=== PATIENT | male | born 1960 | race Caucasian/White ===

== ENCOUNTER → 2019-10-23 09:07 | Outpatient (CLI) | payer BC, SELFPAY ==
--- NOTE | ~2019-10-23 | XR_ITS ---
EXAMINATION: XR shoulder RT min 2V DATE: 10/23/2019 09:43 INDICATION: Right shoulder pain. TECHNIQUE: 4 views of right shoulder were obtained. COMPARISON: None. FINDINGS: Bone alignment is normal. No fracture. Joint spaces are well maintained. IMPRESSION: 1. Normal right shoulder. Reviewed, dictated and finalized at location A. [employer] IMPRESSION: 1. Normal right shoulder.
== END ==
PROVIDERS: PCP Internal Medicine; Visit Provider Internal Medicine
DX: M25.511 Pain in right shoulder (principal)
CPT/HCPCS: 73030

== ENCOUNTER 2019-12-02 17:47 | Emergency (ER) | payer BC, SELFPAY ==
--- NOTE | 2019-12-02 17:56 | ED.URI ---
HPI - URI/Sore Throat General Chief Complaint: Upper Respiratory Infection Stated Complaint: sneezing/fever/mucus/cough Time Seen by Provider: 12/02/19 18:23 Source: patient and RN notes reviewed Mode of arrival: ambulatory Limitations: no limitations History of Present Illness HPI Narrative: 59-year-old male presents with concern for 3-day history of cough, rhinorrhea, nasal congestion. Reports taking NyQuil with no relief. Denies fever, chills, body aches, sweats. MD elicited complaint: nasal congestion Related Data Allergies Allergy/AdvReac Type Severity Reaction Status Date / Time No Known Allergies Allergy Unknown Verified 12/02/19 18:02 Review of Systems Review of Systems: Narrative: CONSTITUTIONAL: Denies malaise, chills, sweats, or fever. EYES: Denies visual changes, redness, or discharge. ENT: Reports rhinorrhea, congestion. Denies sinus pain, otalgia and sore throat. CARDIOVASCULAR: Denies chest pain, palpitations, or edema. RESPIRATORY: Reports cough. Denies dyspnea. GASTROINTESTINAL: Denies abdominal pain, nausea, vomiting, diarrhea SKIN: Denies rash or itching. MUSCULOSKELETAL: Denies myalgia. NEUROLOGIC: Denies headache. All systems reviewed & are unremarkable except as noted in HPI and below PMFSH Past Medical History Medical History (Updated 12/02/19 @ 18:28 by Gila Arellano NP) Depression Hypercholesterolemia Hypertension IBS (irritable bowel syndrome) Musculoskeletal disorder Left hand tendon surgery 1999 Poor sleep hygiene Sleep apnea Sleep disorder, shift work Surgical History Surgical History H/O inguinal hernia repair Social History Social History Smoking status: Never smoker Second hand tobacco smoke exposure: No Alcohol intake: never Comments At time of signature, agree with nursing past medical, surgical, social and family history. There is no relevant family history pertinent to the presenting complaint Exam Narrative: Exam Narrative: GENERAL: Well-appearing, well-nourished, and in no acute distress. HEAD: Normocephalic EYES: PERRLA, conjunctivae clear ENT: Nares clear, turbinates edematous and erythematous, clear discharge. Mucous membranes moist. TM pearly loyd with dull light reflex bilaterally; no tragal tenderness. Oropharynx not erythematous without lesions. Tonsils not enlarged and without exudate, no drooling, no hoarseness, no trismus, uvula midline. NECK: Supple. No lymphadenopathy CHEST: Clear to auscultation, breath sounds equal. No wheezing, rhonchi, rales, or stridor. No respiratory distress, speaks in full sentences. HEART: Regular rate and rhythm. No murmur heard. SKIN: Warm, dry, no rash. NEURO: Alert and oriented x3. PSYCH: Normal mood and affect Course Course Emergency Course: Patient is aware of diagnosis, understands and agrees to treatment plan. Anticipatory guidance given. Patient agrees to follow-up as directed and is aware of reasons to seek care at the emergency department. Portions of this record may have been created with voice recognition software Vital Signs Vital signs: Vital Signs Temperature 98.7 F 12/02/19 17:57 Pulse Rate 87 12/02/19 17:57 Respiratory Rate 18 12/02/19 17:57 Blood Pressure 115/85 12/02/19 17:57 Pulse Oximetry 100 12/02/19 17:57 Temperature 98.7 F 12/02/19 17:57 Pulse Rate 87 12/02/19 17:57 Respiratory Rate 18 12/02/19 17:57 Blood Pressure 115/85 12/02/19 17:57 Pulse Oximetry 100 12/02/19 17:57 Reviewed. MDM - URI/Sore Throat MDM Narrative Medical decision making narrative: Differential diagnosis considered: Strep pharyngitis, allergic rhinitis, upper respiratory tract infection, sinusitis, rhinosinusitis, nasopharyngitis. viral pharyngitis, otitis media, otitis externa, pneumonia, bronchitis, viral cough syndrome, viral syndrome, and influenza. Exam findings show
[2019-12-02 17:57] VITALS: BP 115/85; PULSE 87; RESP 18; TEMP 37.1; O2SAT 100
== END 2019-12-02 18:35 | disposition home or self-care (01) ==
PROVIDERS: Emergency Provider Nurse Practitioner; PCP Internal Medicine
DX: J06.9 Acute upper respiratory infection, unspecified (principal); E78.00 Pure hypercholesterolemia, unspecified; I10 Essential (primary) hypertension; G47.30 Sleep apnea, unspecified; F32.9 Major depressive disorder, single episode, unspecified
CPT/HCPCS: 99213; G0463

== ENCOUNTER 2021-06-30 16:07 | Emergency (ER) | payer OTHER, SELFPAY ==
[2021-06-30 16:51] VITALS: BP 139/89; PULSE 83; RESP 14; TEMP 36.3; O2SAT 99
--- NOTE | 2021-06-30 19:04 | ED.ANIMALBIT ---
HPI - Animal Bite General Chief Complaint: Animal Bite Stated Complaint: Dog bite Time Seen by Provider: 06/30/21 18:20 Source: patient Mode of arrival: ambulatory Limitations: no limitations History of Present Illness HPI narrative: This is a 60 year old male that presents to the ER for dog bite sustained just prior to arrival. Reports he was in the parking lot and another person had a dog in their car. Reports the dog got out of the car and bit him on the bottom. Reports bruising and pain to the area with superficial lacerations. He is not up to date on tetanus. Unsure of dogs vaccination status, but he did get the equipment oiler's information. Denies fever. Related Data Home Medications Medication Instructions Recorded Confirmed lisinopril 20 mg tablet 20 mg PO DAILY tablet 06/24/21 06/24/21 Allergies Allergy/AdvReac Type Severity Reaction Status Date / Time No Known Allergies Allergy Unknown Verified 06/30/21 18:16 Review of Systems Review of Systems: CONSTITUTIONAL: Denies fever SKIN: Reports dog bite All systems reviewed & are unremarkable except as noted in HPI and below PMFSH Past Medical History Medical History (Updated 06/30/21 @ 19:12 by Glory Lim PA-C) Depression Hypercholesterolemia Hypertension IBS (irritable bowel syndrome) Musculoskeletal disorder Left hand tendon surgery 1999 Poor sleep hygiene Sleep apnea Sleep disorder, shift work Surgical History Surgical History H/O inguinal hernia repair Family History Family History Sibling Diabetes mellitus Mother Family history of malignant neoplasm of urinary bladder, Onset Age: 82 Other Carcinoma of colon Family history of cardiovascular disease Social History Social History Smoking status: Never smoker Second hand tobacco smoke exposure: No Alcohol intake: never Exam Narrative: GENERAL: Well-appearing, well-nourished, and in no acute distress. HEAD: Normocephalic, atraumatic. EYES: EOMI. EXTREMITIES: Normal range of motion. No edema. Left buttock with small area of bruising with superficial abrasions SKIN: Warm, dry, no rash. NEURO: No focal deficits. Alert and oriented x3. PSYCH: Normal mood and affect Course Vital Signs Vital signs: Vital Signs Temperature 97.4 F L 06/30/21 16:51 Pulse Rate 83 06/30/21 16:51 Respiratory Rate 14 06/30/21 16:51 Blood Pressure 139/89 06/30/21 16:51 Pulse Oximetry 99 06/30/21 16:51 Temperature 97.4 F L 06/30/21 16:51 Pulse Rate 83 06/30/21 16:51 Respiratory Rate 14 06/30/21 16:51 Blood Pressure 139/89 06/30/21 16:51 Pulse Oximetry 99 06/30/21 16:51 MDM - Animal Bite MDM Narrative Medical decision making narrative: Patient presents the emergency department for dog bite sustained just prior to arrival. Patient was updated on tetanus. Wound was cleansed and covered with a bandage. Patient will be started on Augmentin. Unsure of vaccination status of dog, but he does have the equipment oiler's information to obtain this. Patient was educated on wound care. He is to follow-up with primary care doctor. He was given warnings to return to the ER Critical Care Time Critical Care Time Critical Care Time: No Discharge Plan Discharge Clinical Impression: Dog bite Qualifiers: Encounter type: initial encounter Qualified Code(s): W54.0XXA - Bitten by dog, initial encounter Patient Disposition: Home, Self-Care Condition: Stable Instructions: Antibiotic Form, Animal Bite (ED) Additional Instructions: Return to the emergency department if you experience fever, redness or swelling of your wound, abnormal drainage from your wound, or any other symptoms that are concerning to you. Apply antibiotic ointment daily. Do not soak the wound. Clean with mild soap and water daily. Take oral an
[2021-06-30] MEDS: TETANUS,DIPHTHERIA,AC PERTUSSIS ADULT (0.5 ML) BOOSTRIX IM (19:11)
[2021-06-30] MEDS: AMOXICILLIN/CLAVULANATE K 875-125 MG TAB 1 TABLET PO (19:11)
[2021-06-30 19:25] VITALS: BP 137/95; PULSE 77; RESP 18; O2SAT 100
== END 2021-06-30 19:24 | disposition home or self-care (01) ==
PROVIDERS: Emergency Provider Emergency Medicine; PCP Internal Medicine
DX: S30.870A Other superficial bite of lower back and pelvis, initial encounter (principal); W54.0XXA Bitten by dog, initial encounter; Z23 Encounter for immunization
CPT/HCPCS: 90471; 90715; 99283; A9270

== ENCOUNTER 2021-09-09 16:01 | Emergency (ER) | payer OTHER, SELFPAY ==
--- NOTE | 2021-09-09 16:03 | ED.URI ---
HPI - URI/Sore Throat General Chief Complaint: Upper Respiratory Infection Stated Complaint: sore throat/runny nose Source: patient and RN notes reviewed Mode of arrival: ambulatory Limitations: no limitations History of Present Illness MD elicited complaint: cough and sore throat Related Data Home Medications Medication Instructions Recorded Confirmed lisinopril 20 mg tablet 20 mg PO DAILY tablet 06/24/21 09/09/21 Allergies Allergy/AdvReac Type Severity Reaction Status Date / Time No Known Allergies Allergy Unknown Verified 09/09/21 16:06 Review of Systems Review of Systems: CONSTITUTIONAL: Denies malaise, chills, sweats, or fever. EYES: Denies visual changes, redness, or discharge. ENT: Reports rhinorrhea, congestion, sinus pain, otalgia and sore throat. CARDIOVASCULAR: Denies chest pain, palpitations, or edema. RESPIRATORY: Reports cough. Denies dyspnea. GASTROINTESTINAL: Denies abdominal pain, nausea, vomiting, diarrhea SKIN: Denies rash or itching. MUSCULOSKELETAL: Denies myalgia. NEUROLOGIC: Denies headache. All systems reviewed & are unremarkable except as noted in HPI and below PMFSH Past Medical History Medical History (Updated 09/09/21 @ 16:40 by Gila Arellano NP) Depression Hypercholesterolemia Hypertension IBS (irritable bowel syndrome) Musculoskeletal disorder Left hand tendon surgery 1999 Poor sleep hygiene Sleep apnea Sleep disorder, shift work Surgical History Surgical History H/O inguinal hernia repair Family History Family History Sibling Diabetes mellitus Mother Family history of malignant neoplasm of urinary bladder, Onset Age: 82 Other Carcinoma of colon Family history of cardiovascular disease Social History Social History Smoking status: Never smoker Second hand tobacco smoke exposure: No Alcohol intake: never Comments At time of signature, agree with nursing past medical, surgical, social and family history. There is no relevant family history pertinent to the presenting complaint Exam Narrative: GENERAL: Well-appearing, well-nourished, and in no acute distress. HEAD: Normocephalic EYES: PERRLA, conjunctivae clear ENT: Nares clear, turbinates edematous and erythematous, clear discharge. Mucous membranes moist. TM pearly loyd with dull light reflex bilaterally; no tragal tenderness. Oropharynx not erythematous without lesions. Tonsils not enlarged and without exudate, no drooling, no hoarseness, no trismus, uvula midline. NECK: Supple. No lymphadenopathy CHEST: Clear to auscultation, breath sounds equal. No wheezing, rhonchi, rales, or stridor. No respiratory distress, speaks in full sentences. HEART: Regular rate and rhythm. No murmur heard. SKIN: Warm, dry, no rash. NEURO: Alert and oriented x3. PSYCH: Normal mood and affect Course Course Emergency Course: Patient is aware of diagnosis, understands and agrees to treatment plan. Anticipatory guidance given. Patient agrees to follow-up as directed and is aware of reasons to seek care at the emergency department. Portions of this record may have been created with voice recognition software Vital Signs Vital signs: Reviewed. MDM - URI/Sore Throat MDM Narrative Medical decision making narrative: Differential diagnosis considered: Bojorquez virus, strep pharyngitis, allergic rhinitis, upper respiratory tract infection, sinusitis, rhinosinusitis, nasopharyngitis. viral pharyngitis, otitis media, otitis externa, pneumonia, bronchitis, viral cough syndrome, viral syndrome, and influenza. Exam findings show no acute concerns or changes; patient is non-toxic appearing and is in no distress. Patient is appropriate for outpatient treatment and follow-up. Lab Data Attestation: I reviewed the patient's lab results. Critical Care Time Critical Care Time C
[2021-09-09 16:05] VITALS: BP 101/83; PULSE 70; RESP 16; TEMP 36.6; O2SAT 98
== END 2021-09-09 16:50 | disposition home or self-care (01) ==
PROVIDERS: Emergency Provider Nurse Practitioner; PCP Internal Medicine
DX: J06.9 Acute upper respiratory infection, unspecified (principal); E78.00 Pure hypercholesterolemia, unspecified; I10 Essential (primary) hypertension; G47.30 Sleep apnea, unspecified; F32.A Depression, unspecified
CPT/HCPCS: 87081; 87880; 99213; G0463

== ENCOUNTER 2022-06-25 12:46 | Emergency (ER) | payer BC, SELFPAY ==
--- NOTE | 2022-06-25 12:52 | ED.URI ---
HPI - URI/Sore Throat General Chief Complaint: Upper Respiratory Infection Stated Complaint: cough, congestion, right knee pain Time Seen by Provider: 06/25/22 12:58 Source: patient and RN notes reviewed Mode of arrival: ambulatory Limitations: no limitations History of Present Illness HPI Narrative: 61-year-old male presents with multiple concerns. He reports 1-1/2-week history of runny nose, cough, sinus congestion. Reports he has been taking NyQuil for his symptoms. He reports he also has right knee pain. Reports he has arthritis in his knee and it has been aching for about 3 weeks. He denies any injury to his knee. Reports he has been using Biofreeze and taking Tylenol without relief. Patient was on Paxlovid 2 weeks ago. He denies fever, body aches, chills, sweats MD elicited complaint: cough and sore throat Related Data Allergies Allergy/AdvReac Type Severity Reaction Status Date / Time No Known Allergies Allergy Unknown Verified 09/09/21 16:06 Review of Systems Review of Systems: CONSTITUTIONAL: Denies malaise, chills, sweats, or fever. EYES: Denies visual changes, redness, or discharge. ENT: Reports rhinorrhea, congestion. Denies sinus pain, otalgia and sore throat. CARDIOVASCULAR: Denies chest pain, palpitations, or edema. RESPIRATORY: Reports cough. Denies dyspnea. GASTROINTESTINAL: Denies abdominal pain, nausea, vomiting, diarrhea SKIN: Denies rash or itching. MUSCULOSKELETAL: Denies myalgia. Reports chronic right knee pain NEUROLOGIC: Denies headache. All systems reviewed & are unremarkable except as noted in HPI and below [facility], [facility] Past Medical History Medical History (Updated 06/25/22 @ 13:05 by Gila Arellano NP) Depression Hypercholesterolemia Hypertension IBS (irritable bowel syndrome) Musculoskeletal disorder Left hand tendon surgery 1999 Poor sleep hygiene Sleep apnea Sleep disorder, shift work Surgical History Surgical History H/O inguinal hernia repair Family History Family History Sibling Diabetes mellitus Mother Family history of malignant neoplasm of urinary bladder, Onset Age: 82 Other Carcinoma of colon Family history of cardiovascular disease Social History Social History Smoking status: Never smoker Second hand tobacco smoke exposure: No Alcohol intake: never Comments At time of signature, agree with nursing past medical, surgical, social and family history. There is no relevant family history pertinent to the presenting complaint Exam Narrative: GENERAL: Well-appearing, well-nourished, and in no acute distress. HEAD: Normocephalic EYES: PERRLA, conjunctivae clear ENT: Nares clear, turbinates edematous and erythematous. Mucous membranes moist. TM pearly loyd with dull light reflex bilaterally; no tragal tenderness. Oropharynx not erythematous without lesions. Tonsils not enlarged and without exudate, no drooling, no hoarseness, no trismus, uvula midline. NECK: Supple. No lymphadenopathy CHEST: Clear to auscultation, breath sounds equal. No wheezing, rhonchi, rales, or stridor. No respiratory distress, speaks in full sentences. HEART: Regular rate and rhythm. No murmur heard. SKIN: Warm, dry, no rash. NEURO: Alert and oriented x3. PSYCH: Normal mood and affect Course Course Emergency Course: Patient is aware of diagnosis, understands and agrees to treatment plan. Anticipatory guidance given. Patient agrees to follow-up as directed and is aware of reasons to seek care at the emergency department. Portions of this record may have been created with voice recognition software Level of Care: Express Care Visit Vital Signs Vital signs: Reviewed. MDM - URI/Sore Throat MDM Narrative Medical decision making narrative: Differential diagnosis considered: Bojorquez virus, strep pharyngitis, allergic rhiniti
[2022-06-25 12:56] VITALS: BP 103/81; PULSE 79; RESP 16; TEMP 36.5; O2SAT 99
== END 2022-06-25 13:14 | disposition home or self-care (01) ==
PROVIDERS: Emergency Provider Nurse Practitioner; PCP Family Medicine
DX: J06.9 Acute upper respiratory infection, unspecified (principal); R05.9 Cough, unspecified; H92.01 Otalgia, right ear; E78.00 Pure hypercholesterolemia, unspecified; I10 Essential (primary) hypertension; G47.30 Sleep apnea, unspecified
CPT/HCPCS: 99213; G0463

== ENCOUNTER → 2022-08-30 16:08 | Outpatient (CLI) | payer BC, SELFPAY ==
--- NOTE | ~2022-08-30 | XR_ITS ---
XR knee RT min 4V DATE: 08/30/2022 19:21 INDICATION: Chronic right knee pain TECHNIQUE: 4 views including sunrise COMPARISON: None FINDINGS: There is minimal periarticular spurring of the patella. Joint spaces are well preserved. No fracture or dislocation or joint effusion. No radiopaque intra-articular loose body or chondrocalcin osis. No fracture, dislocation, periosteal reaction or bone destruction. IMPRESSION: Mild patellofemoral osteoarthritis Reviewed, dictated and finalized at location B. [employer]
== END ==
PROVIDERS: PCP Family Medicine; Visit Provider Family Medicine
DX: M25.561 Pain in right knee (principal); M17.11 Unilateral primary osteoarthritis, right knee
CPT/HCPCS: 73564

== ENCOUNTER 2022-09-03 08:02 | Outpatient (CLI) | payer BC, SELFPAY ==
[2022-09-03 09:20] LABS: Alanine Aminotransferase 40 U/L (6-50); Albumin Level 4.5 g/dL (3.5-5.1); Alkaline Phosphatase 30 U/L (38-126); Anion Gap 7 mmol/L (8-16); Aspartate Amino Transferase 34 U/L (17-59); Blood Urea Nitrogen 16 mg/dL (9-20); Calcium 8.5 mg/dL (8.4-10.2); Carbon Dioxide 29 mmol/L (22-30); Chloride 104 mmol/L (98-107); Cholesterol 153 mg/dL (0-200); Estimated Glomerular Filt Rate > 60; Glucose 105 mg/dL (65-110); HDL Direct 39 mg/dL; Potassium 3.9 mmol/L (3.4-5.0); Sodium 140 mmol/L (137-145); Triglycerides 125 mg/dL (<150)
[2022-09-03 09:31] LABS: LDL Cholesterol Direct 74 mg/dL
[2022-09-03 09:53] LABS: Prostate Specific Antigen 1.2 ng/mL (< OR = 4.0)
== END 2022-09-03 08:03 | disposition home or self-care (01) ==
LOC: ANHLAB 08:03
PROVIDERS: PCP Family Medicine; Visit Provider Family Medicine
DX: Z12.5 Encounter for screening for malignant neoplasm of prostate (principal); E78.5 Hyperlipidemia, unspecified; I10 Essential (primary) hypertension
CPT/HCPCS: 36415; 80053; 80061; 84153; G0103

== ENCOUNTER 2022-09-27 07:55 | Day surgery (SDC) | payer BC, SELFPAY ==
[2022-09-13 11:31] VITALS: BMI 26.6
[2022-09-27 11:48] VITALS: BP 125/87; PULSE 81; RESP 17; TEMP 36.1; O2SAT 99
[2022-09-27] MEDS: LACTATED RINGERS 1,000 ML 150 ML IV CONT (11:58)
--- NOTE | 2022-09-27 12:11 | WPDANESEPPF ---
Anes - Initial Pre Proc Eval Procedure: Operation Date: 09/27/22 13:15 Proposed Procedures p Screening Colonoscopy - Lee Centeno MD Date/Time: 09/27/22 12:11 Surgeon: Lee Centeno MD Pre Op Diagnosis: neoplasms screening, fam hx of colon cancer Patient Data Age: 62 Gender: M Height: 1.75 m Weight: 88.6 kg Last Vital Signs Temp 97 F L 09/27/22 11:48 Pulse 81 09/27/22 11:48 Resp 17 09/27/22 11:48 BP 125/87 09/27/22 11:48 Pulse Ox 99 09/27/22 11:48 O2 Del Method Room Air 09/27/22 11:48 Allergies Allergy/AdvReac Type Severity Reaction Status Date / Time No Known Allergies Allergy Unknown Verified 09/27/22 11:47 Home Medications Medication Instructions Recorded Confirmed Type atorvastatin 20 mg tablet 20 mg PO DAILY #30 tabs 06/30/22 09/13/22 Rx trazodone 100 mg tablet 100 mg PO QHS 90 days #90 tabs 07/28/22 09/13/22 Rx lisinopril 20 mg tablet 20 mg PO DAILY #90 tabs 09/27/22 09/27/22 Rx Patient hx anesthesia problems: none Family hx anesthesia problems: none Results Review: All pre-operative results and documents have been reviewed as part of the pre-operative evaluation. [facility] [place] Past Medical History Medical History Depression Hypercholesterolemia Hypertension IBS (irritable bowel syndrome) Musculoskeletal disorder Left hand tendon surgery 1999 Poor sleep hygiene Sleep apnea Sleep disorder, shift work Surgical History Surgical History H/O inguinal hernia repair Family History Family History Sibling Diabetes mellitus Mother Family history of malignant neoplasm of urinary bladder, Onset Age: 82 Other Carcinoma of colon Family history of cardiovascular disease Social History Social History Smoking status: Never smoker Second hand tobacco smoke exposure: No Alcohol intake: never Substance use: never Substance use type: does not use Lack of Transportation: No Lack of Food: Never True Current Housing: I Have Housing Concerned About Future Housing: No Difficulty Paying Gas/Electric Bills: No Difficulty Paying for Meds: No Currently Unemployed: No Education: Bachelor's Degree Difficulty w/ Childcare or Family Care: No Living arrangements: alone Anes - Evyuko Final PreProcedure Day of Procedure 09/27/22 12:11 Patient weight: obese Heart: regular rate and rhythm Lungs: clear to auscultation Airway: Mallampati scale class II Neurological: alert and oriented Last oral intake: >/= 8 hours ASA classification: III Emergent: no Anesthetic plan: proceed Anesthesia type and monitoring: general GIVS and standard monitoring Results Review: All pre-operative results and documents have been reviewed as part of the pre-operative evaluation. Informed Consent: The patient's anesthetic plan and its attendant risks and benefits were discussed with the patient/family/POA. Questions were solicited and answers provided to the satisfaction of the patient/family/POA.
--- NOTE | 2022-09-27 12:15 | PM.HPGS ---
History of Present Illness History of Present Illness Consent: Risks, benefits, and alternatives have been discussed and questions answered. Patient agrees to proceed with procedure. Chief complaint: neoplasms screening, fam hx of colon cancer Narrative: Rito King is a 62 year old male Presents for screening colonoscopy. Patient's current weight appetite and bowel movements are normal. Patient denies abdominal pain. He has had no bleeding. Family history is significant for colon cancer. Patient presents today for screening colonoscopy. Previous exam 5 years ago was unremarkable. Review of Systems Review of Systems: Review of systems noncontributory. [facility] Past Medical History Medical History (Updated 09/27/22 @ 12:16 by Lee Centeno MD) Depression Hypercholesterolemia Hypertension IBS (irritable bowel syndrome) Musculoskeletal disorder Left hand tendon surgery 1999 Poor sleep hygiene Sleep apnea Sleep disorder, shift work Surgical History Surgical History H/O inguinal hernia repair Family History Family History Sibling Diabetes mellitus Mother Family history of malignant neoplasm of urinary bladder, Onset Age: 82 Other Carcinoma of colon Family history of cardiovascular disease Social History Social History Smoking status: Never smoker Second hand tobacco smoke exposure: No Alcohol intake: never Substance use: never Substance use type: does not use Lack of Transportation: No Lack of Food: Never True Current Housing: I Have Housing Concerned About Future Housing: No Difficulty Paying Gas/Electric Bills: No Difficulty Paying for Meds: No Currently Unemployed: No Education: Bachelor's Degree Difficulty w/ Childcare or Family Care: No Living arrangements: alone Meds Home Medications and Allergies Home Medications Medication Instructions Recorded Confirmed Type atorvastatin 20 mg tablet 20 mg PO DAILY #30 tabs 06/30/22 09/13/22 Rx trazodone 100 mg tablet 100 mg PO QHS 90 days #90 tabs 07/28/22 09/13/22 Rx lisinopril 20 mg tablet 20 mg PO DAILY #90 tabs 09/27/22 09/27/22 Rx Allergies Allergy/AdvReac Type Severity Reaction Status Date / Time No Known Allergies Allergy Unknown Verified 09/27/22 11:47 Vital Signs Vital Signs - 24 hr 09/27/22 11:48 Temperature 97 F L Pulse Rate 81 Respiratory Rate 17 Blood Pressure 125/87 Pulse Oximetry 99 Oxygen Delivery Room Air Exam Narrative: Physical exam reveals patient to be alert. Vital signs stable. HEENT exam is unremarkable. Patient is anicteric. Lungs are clear to auscultation and percussion. Heart is without murmur or extra sounds. Abdomen bowel sounds present soft nontender with no organomegaly. Digital external rectal exam is normal. Assessment and Plan Assessment and plan (1) Encounter for screening colonoscopy: Code(s): Z12.11 - Encounter for screening for malignant neoplasm of colon Status: Acute Assessment and Plan: Patient presents today for screening colonoscopy. He gives a family history of colon cancer. Plan for surveillance colonoscopy now. Consider follow-up colonoscopy at 5 year intervals.
[2022-09-27 13:21] VITALS: BP 119/80; PULSE 67; RESP 14; O2SAT 97
[2022-09-27 13:31] VITALS: BP 115/76; PULSE 64; RESP 16; O2SAT 98
[2022-09-27 13:41] VITALS: BP 123/84; PULSE 69; RESP 24; O2SAT 98
== END 2022-09-27 13:52 | disposition home or self-care (01) ==
PROVIDERS: PCP Family Medicine; Visit Provider Internal Medicine Gastroenterology
PROC: 0DJD8ZZ Inspection of Lower Intestinal Tract, Via Natural or Artificial Opening Endoscopic (ICD-10-PCS; CPT 45378; principal; 2022-09-27 13:15)
DX: Z12.11 Encounter for screening for malignant neoplasm of colon (principal); K64.8 Other hemorrhoids; Z80.0 Family history of malignant neoplasm of digestive organs; I10 Essential (primary) hypertension; E78.00 Pure hypercholesterolemia, unspecified; F32.A Depression, unspecified; G47.30 Sleep apnea, unspecified; E66.9 Obesity, unspecified; Z68.28 Body mass index [BMI] 28.0-28.9, adult
CPT/HCPCS: 45378; J2704; J7120

== ENCOUNTER 2023-01-21 10:02 | Emergency (ER) | payer BC, SELFPAY ==
[2023-01-21 10:17] VITALS: BP 115/79; PULSE 91; RESP 16; TEMP 36.2; O2SAT 96
[2023-01-21 10:30] VITALS: BP 115/79; PULSE 91; RESP 16; TEMP 36.2; O2SAT 96
--- NOTE | 2023-01-21 10:41 | ED.URI ---
HPI - URI/Sore Throat General Chief Complaint: Upper Respiratory Infection Stated Complaint: chills,fever,congestion/drainage,cough Time Seen by Provider: 01/21/23 10:40 Source: patient, RN notes reviewed and old records reviewed Mode of arrival: ambulatory Limitations: no limitations History of Present Illness HPI Narrative: 62 year old male presents to express care with concern for cough,nasal congestion and drainage, chills fevers and sore throat for the past 6 days.Patient reports that he has taken some left over Amoxicillin and has been taking some promethazine DM cough syrup for his symptoms. Patient denies any present known fevers, no known ill contacts. MD elicited complaint: cough, sore throat, rhinorrhea, nasal congestion and other (chills) Onset (ago): day(s) (6) Able to tolerate fluids by mouth: Yes Treatments prior to arrival: other (left over Amoxicillin and some promethazine DM cough syrup) Related Data Allergies Allergy/AdvReac Type Severity Reaction Status Date / Time No Known Allergies Allergy Unknown Verified 01/21/23 10:21 Review of Systems Review of Systems: CONSTITUTIONAL:Reports malaise, chills, sweats, or fever. EYES: Denies visual changes, redness, or discharge. ENT: Reports rhinorrhea, congestion, sinus pain, otalgia and sore throat. CARDIOVASCULAR: Denies chest pain, palpitations, or edema. RESPIRATORY: Reports cough.? Denies dyspnea. GASTROINTESTINAL: Denies abdominal pain, nausea, vomiting, diarrhea SKIN: Denies rash or itching. MUSCULOSKELETAL: Denies myalgia. NEUROLOGIC: Denies headache. All systems reviewed & are unremarkable except as noted in HPI and below [facility] Past Medical History Medical History (Updated 01/22/23 @ 00:00 by Background Daemon) Depression Hypercholesterolemia Hypertension IBS (irritable bowel syndrome) Musculoskeletal disorder Left hand tendon surgery 1999 Poor sleep hygiene Sleep apnea Sleep disorder, shift work Surgical History Surgical History H/O inguinal hernia repair Family History Family History Sibling Diabetes mellitus Mother Family history of malignant neoplasm of urinary bladder, Onset Age: 82 Other Carcinoma of colon Family history of cardiovascular disease Social History Social History Smoking status: Never smoker Second hand tobacco smoke exposure: No Alcohol intake: never Substance use: never Substance use type: does not use Lack of Transportation: No Lack of Food: Never True Current Housing: I Have Housing Concerned About Future Housing: No Difficulty Paying Gas/Electric Bills: No Difficulty Paying for Meds: No Currently Unemployed: No Education: Bachelor's Degree Difficulty w/ Childcare or Family Care: No Living arrangements: alone Comments At time of signature, agree with nursing past medical, surgical, social and family history. There is no relevant family history pertinent to the presenting complaint Exam Narrative: GENERAL: Well-appearing, well-nourished, and in no acute distress. HEAD: Normocephalic EYES: PERRLA, conjunctivae clear ENT: Nares clear, turbinates edematous and erythematous, clear discharge. Mucous membranes moist. TM pearly loyd with dull light reflex bilaterally; no tragal tenderness. Oropharynx erythematous without lesions. Tonsils not enlarged and without exudate, no drooling, no hoarseness, no trismus, uvula midline. NECK: Supple. No lymphadenopathy CHEST: Clear to auscultation, breath sounds equal. No wheezing, rhonchi, rales, or stridor. No respiratory distress, speaks in full sentences.cough, SAO2 96% on room air HEART: Regular rate and rhythm. No murmur heard. SKIN: Warm, dry, no rash. NEURO: Alert and oriented x3. PSYCH: Normal mood and affect Course Course Emergency
== END 2023-01-21 11:05 | disposition home or self-care (01) ==
PROVIDERS: Emergency Provider Registered Nurse; PCP Family Medicine
DX: J10.1 Influenza due to other identified influenza virus with other respiratory manifestations (principal); Z20.822 Contact with and (suspected) exposure to COVID-19; E78.00 Pure hypercholesterolemia, unspecified; I10 Essential (primary) hypertension; F32.A Depression, unspecified
CPT/HCPCS: 87426; 87804; 99213; C9803; G0463

== ENCOUNTER 2023-08-09 16:49 | Emergency (ER) | payer BC, SELFPAY ==
[2023-08-09 17:05] VITALS: BP 123/90; PULSE 86; RESP 16; TEMP 36.6; O2SAT 98
--- NOTE | 2023-08-09 17:18 | ED.URI ---
HPI - URI/Sore Throat General Chief Complaint: Upper Respiratory Infection Stated Complaint: SINUS CONGESTION Time Seen by Provider: 08/09/23 17:18 Source: patient Mode of arrival: ambulatory Limitations: no limitations History of Present Illness HPI Narrative: 63-year-old male presents with complaint of nasal congestion, sneezing for 4-5 days. Called his primary care physician yesterday and Flonase was called in for him. Patient reports that medication is not helping at all. States ?prescription medications are the only thing that helps me ?. ?I need some amoxicillin ?. Patient denies chest pain or shortness of breath. Afebrile. Patient does not think that his symptoms are related to allergies. All systems reviewed and negative except as noted above. Related Data Allergies Allergy/AdvReac Type Severity Reaction Status Date / Time No Known Allergies Allergy Unknown Verified 08/09/23 17:13 Review of Systems Review of Systems: CONSTITUTIONAL: Denies fever, chills, or sweats. EYES: Denies visual changes, redness, or discharge. ENT: Reports rhinorrhea, congestion, sore throat. Denies otalgia. CARDIOVASCULAR: Denies chest pain, palpitations, or edema. RESPIRATORY: Denies cough or dyspnea. GASTROINTESTINAL: Denies abdominal pain, nausea, vomiting, or diarrhea. GENITOURINARY: Denies dysuria or hematuria. SKIN: Denies rash or itching. MUSCULOSKELETAL: Denies back pain, joint pain, or myalgia. NEUROLOGIC: Denies headache, numbness, or weakness. PSYCHIATRIC: Denies anxiety or depression. All other systems reviewed are negative, except as documented in HPI. [facility] Past Medical History Medical History (Updated 08/09/23 @ 17:26 by Janet Rayo NP) Depression Hypercholesterolemia Hypertension IBS (irritable bowel syndrome) Musculoskeletal disorder Left hand tendon surgery 1999 Poor sleep hygiene Sleep apnea Sleep disorder, shift work Surgical History Surgical History H/O inguinal hernia repair Family History Family History Sibling Diabetes mellitus Mother Family history of malignant neoplasm of urinary bladder, Onset Age: 82 Other Carcinoma of colon Family history of cardiovascular disease Social History Social History Smoking status: Never smoker Second hand tobacco smoke exposure: No Alcohol intake: never Substance use: never Substance use type: does not use Lack of Transportation: No Lack of Food: Never True Current Housing: I Have Housing Concerned About Future Housing: No Difficulty Paying Gas/Electric Bills: No Difficulty Paying for Meds: No Currently Unemployed: No Education: Bachelor's Degree Difficulty w/ Childcare or Family Care: No Living arrangements: alone Comments At time of signature, agree with nursing past medical, surgical, social and family history. There is no relevant family history pertinent to the presenting complaint. Exam Narrative: GENERAL: This is a well-nourished, well-developed patient, in no apparent distress. HEAD: normocephalic, atraumatic. EYES: PERRL. Sclera clear/white. Vision is grossly intact. EARS: External ears normal, auditory canals clear and without drainage, fluid bilateral TMs without erythema or perforation. Hearing grossly intact. NOSE: External nose normal with clear nasal drainage, erythema and swelling to bilateral nares. THROAT: Mucous membranes moist, clear postnasal drainage without erythema or swelling. No exudates. NECK: Neck supple, non-tender without lymphadenopathy, masses or thyromegaly. CARDIOVASCULAR: Regular rate and rhythm without murmurs, gallops, or rubs. RESPIRATORY: Clear to auscultation. Breath sounds equal bilaterally. No wheezes, rales, or rhonchi. SKIN: warm, Dry, intact with no suspicious lesions or rash, good texture and tur
== END 2023-08-09 17:28 | disposition home or self-care (01) ==
PROVIDERS: Emergency Provider Nurse Practitioner Family; PCP Family Medicine
DX: J30.9 Allergic rhinitis, unspecified (principal); I10 Essential (primary) hypertension
CPT/HCPCS: 99213; G0463

== ENCOUNTER 2023-09-12 11:35 | Outpatient (CLI) | payer BC, SELFPAY ==
[2023-09-12 20:54] LABS: Hemoglobin A1C 5.5 % (<5.7)
[2023-09-12 23:57] LABS: Alanine Aminotransferase 26 U/L (6-50); Albumin Level 4.2 g/dL (3.5-5.1); Alkaline Phosphatase 32 U/L (38-126); Anion Gap 5 mmol/L (8-16); Aspartate Amino Transferase 49 U/L (17-59); Bilirubin,Total 1.1 mg/dL (0.2-1.3); Blood Urea Nitrogen 22 mg/dL (9-20); Calcium 9.2 mg/dL (8.4-10.2); Carbon Dioxide 29 mmol/L (22-30); Chloride 105 mmol/L (98-107); Cholesterol 153 mg/dL (0-200); Estimated Glomerular Filt Rate > 60; Glucose 97 mg/dL (65-110); HDL Direct 39 mg/dL; Potassium 4.3 mmol/L (3.4-5.0); Sodium 139 mmol/L (137-145); Triglycerides 119 mg/dL (<150)
[2023-09-13 00:03] LABS: LDL Cholesterol Direct 84 mg/dL
[2023-09-13 01:04] LABS: Prostate Specific Antigen 1.1 ng/mL (< OR = 4.0)
== END 2023-09-12 11:36 | disposition home or self-care (01) ==
LOC: ANHGOSHLAB 11:36
PROVIDERS: PCP Family Medicine; Visit Provider Family Medicine
DX: Z12.5 Encounter for screening for malignant neoplasm of prostate (principal); R73.9 Hyperglycemia, unspecified; Z13.220 Encounter for screening for lipoid disorders; Z13.228 Encounter for screening for other metabolic disorders
CPT/HCPCS: 36415; 80053; 80061; 83036; 84153; G0103

== ENCOUNTER 2023-10-25 14:29 | Emergency (ER) | payer OTHER, SELFPAY ==
[2023-10-25 14:37] VITALS: BP 133/92; PULSE 74; RESP 16; TEMP 36.8; O2SAT 100
--- NOTE | 2023-10-25 14:58 | ED.GENADULT ---
HPI - General Adult General Chief complaint: Unspecified Stated complaint: BLOOD IN STOOL Time Seen by Provider: 10/25/23 14:58 Source: patient Mode of arrival: ambulatory Limitations: no limitations History of Present Illness HPI narrative: 63-year-old male presents with complaint of blood in stool x1 today. Patient states ?I have had several friends that have blood in her stool and they had colon cancer ?. Patient states ?I called my primary care doctor for an appointment today and only a nurse practitioner can see me ?. States he will not be able to get into his primary care physician for 2-3 weeks. Denies abdominal pain. Reports that he has had some trouble with constipation for the past 2 days. Has not tried any [id number] medications to treat constipation. States that he had to strain a little bit this morning to have bowel movement. Has never had blood in his stool or hemorrhoids in the past. Denies abdominal pain. Denies rectal pain and itching. All systems reviewed and negative except as noted above. Related Data Allergies Allergy/AdvReac Type Severity Reaction Status Date / Time No Known Allergies Allergy Unknown Verified 10/25/23 14:51 Review of Systems Review of Systems: CONSTITUTIONAL: Denies fever, chills, or sweats. EYES: Denies visual changes, redness, or discharge. ENT: Denies rhinorrhea, congestion, sore throat, or otalgia. CARDIOVASCULAR: Denies chest pain, palpitations, or edema. RESPIRATORY: Denies cough or dyspnea. GASTROINTESTINAL: Denies abdominal pain, nausea, vomiting, or diarrhea. Reports blood in stool. GENITOURINARY: Denies dysuria or hematuria. SKIN: Denies rash or itching. MUSCULOSKELETAL: Denies back pain, joint pain, or myalgia. NEUROLOGIC: Denies headache, numbness, or weakness. PSYCHIATRIC: Denies anxiety or depression. All other systems reviewed are negative, except as documented in HPI. [facility] Past Medical History Medical History (Updated 10/25/23 @ 15:12 by Janet Rayo NP) Depression Hypercholesterolemia Hypertension IBS (irritable bowel syndrome) Musculoskeletal disorder Left hand tendon surgery 1999 Poor sleep hygiene Sleep apnea Sleep disorder, shift work Surgical History Surgical History H/O inguinal hernia repair Family History Family History Sibling Diabetes mellitus Mother Family history of malignant neoplasm of urinary bladder, Onset Age: 82 Other Carcinoma of colon Family history of cardiovascular disease Social History Social History Social History: Caffeine- Smoking status: Never smoker Second hand tobacco smoke exposure: No Alcohol intake: never Substance use: never Substance use type: does not use Lack of Transportation: No Lack of Food: Never True Current Housing: I Have Housing Concerned About Future Housing: No Difficulty Paying Gas/Electric Bills: No Difficulty Paying for Meds: No Currently Unemployed: No Education: Bachelor's Degree Difficulty w/ Childcare or Family Care: No Living arrangements: alone Comments At time of signature, agree with nursing past medical, surgical, social and family history. There is no relevant family history pertinent to the presenting complaint. Exam Narrative: GENERAL: This is a well-nourished, well-developed patient, in no apparent distress. HEAD: normocephalic, atraumatic. EYES: PERRL. Sclera clear/white. Vision is grossly intact. EARS: External ears normal NOSE: External nose normal NECK: Neck supple, non-tender without lymphadenopathy, masses or thyromegaly. CARDIOVASCULAR: Regular rate and rhythm without murmurs, gallops, or rubs. RESPIRATORY: Clear to auscultation. Breath sounds equal bilaterally. No wheezes, rales, or rhonchi. GASTROINTESTINAL: Abdomen soft, non-tender, nondistended
== END 2023-10-25 15:13 | disposition home or self-care (01) ==
PROVIDERS: Emergency Provider Nurse Practitioner Family; PCP Family Medicine
DX: K92.1 Melena (principal); E78.00 Pure hypercholesterolemia, unspecified; I10 Essential (primary) hypertension
CPT/HCPCS: 99211; G0463

== ENCOUNTER 2023-11-07 09:52 | Outpatient (CLI) | payer OTHER, SELFPAY ==
[2023-11-07 10:45] LABS: Hematocrit 45.1 % (42.0-52.0); Hemoglobin 15.4 g/dL (14.0-18.0); Mean Corpuscular HGB Conc 34.1 g/dl (32-36); Mean Corpuscular Hemoglobin 31.9 pg (26-34); Mean Corpuscular Volume 93.4 fl (80-100); Mean Platelet Volume 9.1 fl (7.4-10.4); Platelet Count Result 242 k/mm3 (150-375); Red Blood Count 4.83 M/mm3 (4.6-6.20); Red Cell Distribution Width 11.7 % (11.5-14.5); White Blood Count 8.1 K/mm3 (4.5-10.0)
[2023-11-07 10:58] LABS: Alanine Aminotransferase 23 U/L (6-50); Albumin Level 4.3 g/dL (3.5-5.1); Alkaline Phosphatase 30 U/L (38-126); Anion Gap 6 mmol/L (8-16); Aspartate Amino Transferase 31 U/L (17-59); Bilirubin,Total 1.3 mg/dL (0.2-1.3); Blood Urea Nitrogen 26 mg/dL (9-20); Carbon Dioxide 28 mmol/L (22-30); Chloride 105 mmol/L (98-107); Estimated Glomerular Filt Rate > 60; Glucose 98 mg/dL (65-110); Potassium 4.1 mmol/L (3.4-5.0); Sodium 139 mmol/L (137-145)
[2023-11-07 11:34] LABS: Thyroid Stimulating Hormone Reflex 0.556 uIU/mL (0.465-4.68)
== END 2023-11-07 09:53 | disposition home or self-care (01) ==
LOC: ANHLAB 09:56
PROVIDERS: PCP Family Medicine; Visit Provider Nurse Practitioner
DX: K92.1 Melena (principal); R19.4 Change in bowel habit
CPT/HCPCS: 36415; 80053; 84443; 85027